=== PATIENT | female | born 1965 | race Caucasian/White ===

== ENCOUNTER 2022-01-07 21:42 | Emergency (ER) | payer OTHER ==
[2022-01-07] MEDS ORDERED: CYCLOBENZAPRINE 10 MG (FLEXERIL) TAB PO STA (22:18)
--- NOTE | 2022-01-07 22:18 | ED Back Pain ---
General Chief Complaint: Back Problems Stated Complaint: LOWER BACK PAIN Nursing Triage Note: Pt complaining of left lower back pain that started a couple of weeks ago and has worsened over the past few days Source of Information: Patient Exam Limitations: No Limitations History of Present Illness Date Seen by Provider: Jan 07, 2022 Time Seen by Provider: 21:46 Initial Comments 56-year-old female with no pertinent past medical history coming in due to low back pain. Started about a week ago when she is picking up a heavy chair outside and speak the left lower back. Denies any trauma. Things were going okay but she feels like she worsened it again picking something up roughly 3 days ago. Denies any numbness, weakness, bowel or bladder dysfunction, midline pain, fever, history of cancer, or any other concerns. She tried [id number] medicines but is not helping. She tried to contact her regular doctor, but they wanted to refer her to an Ortho and were unwilling to see her. Pain is constant, throbbing, lower left back, and better with rest, worse with twisting or moving Allergies and Home Medications Allergies Coded Allergies: No Known Drug Allergies (Unverified , 01/07/22) Patient Home Medication List Home Medication List Reviewed: Yes Review of Systems Constitutional: No fever EENTM: No blurred vision Respiratory: no symptoms reported Cardiovascular: no symptoms reported Gastrointestinal: no symptoms reported Genitourinary: no symptoms reported Musculoskeletal: back pain Skin: no symptoms reported Psychiatric/Neurological: No Symptoms Reported All Other Systems Reviewed Negative Unless Noted: Yes Past Ukklind-Yuwarp-Jqkhya Hx Patient Social History Tobacco Use?: No Use of E-Cig and/or Vaping dev: No Substance use?: No Alcohol Use?: No Pt feels they are or have been: No Past Medical History Surgeries: Yes Gallbladder Physical Exam Vital Signs Vital Signs - First Documented 01/07/22 21:54 Temp 36.2 Pulse 78 Resp 18 B/P (MAP) 148/67 (94) Pulse Ox 97 O2 Delivery Room Air Capillary Refill : Less Than 3 Seconds Height, Weight, BMI Height: '" Weight: lbs. oz. kg; BMI Method: General Appearance: No Apparent Distress, WD/WN HEENT: PERRL/EOMI, Normal ENT Inspection, Pharynx Normal Neck: Full Range of Motion, Normal Inspection, Non Tender, Supple Cardiovascular: Regular Rate, Rhythm, No Edema, Normal Peripheral Pulses Respiratory: Chest Non Tender, Lungs Clear, Normal Breath Sounds, No Accessory Muscle Use, No Respiratory Distress Gastrointestinal: Normal Bowel Sounds, Non Tender, Soft; No Distended, No Guarding Back: Normal Inspection, No CVA Tenderness, No Vertebral Tenderness, Other (Pain with range of motion and twisting of back, but he does have full range of motion, negative straight leg test, normal distal sensation, normal distal strength, normal gait) Extremity: Normal Capillary Refill, Normal Inspection, Normal Range of Motion, Non Tender, No Calf Tenderness, No Pedal Edema Neurologic/Psychiatric: Alert, No Motor/Sensory Deficits, Normal Mood/Affect Skin: Normal Color, Warm/Dry Lymphatic: No Adenopathy Progress/Results/Core Measures Results/Orders My Orders Orders - VERENICE CASTELLON MD Ketorolac Injection (Toradol Injection) (01/07/22 22:30) Dexamethasone Injection (Decadron Injec (01/07/22 22:30) Cyclobenzaprine Tablet (Flexeril Tablet) (01/07/22 22:18) Vital Signs/I&O 01/07/22 21:54 Temp 36.2 Pulse 78 Resp 18 B/P (MAP) 148/67 (94) Pulse Ox 97 O2 Delivery Room Air Blood Pressure Mean: 94 Progress Progress Note : Progress Note 56-year-old female with above history coming in due to low back pain. ABCs were intact and vitals were stable on presentation. Physical exam reassuring including a normal neuro exam. She has no red flags for low back pain. No trauma so we will forego imaging at this time. Exam and story are consistent with a musculoskeletal cause. We will treat her symptomatically and have her follow-up with her outpatient physician. She was then discharged home in stable condition with strict return precautions. Departure Impression Primary Impression: Back pain Qualified Codes: M54.50 - Low back pain, unspecified Disposition: 01 HOME, SELF-CARE Condition: Stable Departure-Patient Inst. Decision time for Depature: 22:35 Referrals: NO,LOCAL PHYSICIAN (PCP/Family) Primary Care Physician Patient Instructions: Low Back Pain (DC) Add. Discharge Instructions: Try to do some gentle moving and stretching. You can try heating pad, but do not use at the same time of using the lidocaine patch that you are prescribed. Take the ketorolac which is a strong anti-inflammatory. Do not mix it with ibuprofen or naproxen. You can take Tylenol with it. Once you are out of the ketorolac, you can then substituted for ibuprofen or naproxen. If you are still having pain in 2 weeks then I would recommend following up with an orthopedist. Scripts Lidocaine (Lidocaine 5% Patch) 5 % Adh..patch 1 EACH TP Q12H PRN for Neuropathic pain MDD 2 for 7 Days, #14 PATCH 2 patches max for 12 hours, then 12 hours patch-free period. Prov: VERENICE CASTELLON MD 01/07/22 Cyclobenzaprine HCl (Cyclobenzaprine HCl) 10 Mg Tablet 10 MG PO BID PRN for SPASMS for 7 Days, #14 TAB Prov: VERENICE CASTELLON MD 01/07/22 Ketorolac Tromethamine (Ketorolac Tromethamine) 10 Mg Tablet 10 MG PO Q8H for 3 Days, #9 TAB Prov: VERENICE CASTELLON MD 01/07/22 Work/School Note: Work Release Form Date Seen in the Emergency Department: Jan 07, 2022 Return to Work: Jan 09, 2022 Restrictions: No Restrictions VERENICE CASTELLON MD Jan 07, 2022 22:18
[2022-01-07] MEDS ORDERED: LIDO700A45 TP (22:22)
[2022-01-07] MEDS ORDERED: CYCL10TA25 PO (22:22)
[2022-01-07] MEDS ORDERED: KETO10TA PO (22:22)
[2022-01-07] MEDS ORDERED: KETOROLAC 30 MG/ML VIAL IM ONE (22:30)
[2022-01-07] MEDS ORDERED: GABAPENTIN 100 MG (NEURONTIN) CAP PO ONE (22:30)
[2022-01-07 22:42] VITALS: BP 148/67
== END 2022-01-07 22:44 | disposition home or self-care (01) ==
LOC: EDUNIT# 21:42 → ER FS 21:52
DX: M54.50 Low back pain, unspecified (principal)
CPT/HCPCS: 99284